=== PATIENT | female | born 1960 | race Caucasian/White ===

== ENCOUNTER 2016-09-25 06:00 | Emergency (ER) | payer SELFPAY ==
--- NOTE | 2016-09-25 08:57 | RAD ---
INDICATION: Fall. Left knee pain COMPARISON: December 04, 2008 TECHNIQUE: AP, lateral, tunnel, and sunrise views were obtained. FINDINGS: There is tricompartmental osteoarthritis of the right knee which appears progressive with moderate condylar and patellofemoral spurring. There is moderate medial and patellofemoral joint space narrowing. There is no acute bony change. There is no joint effusion. IMPRESSION: MODERATE TRICOMPARTMENTAL OSTEOARTHRITIS
[2016-09-25 09:30] VITALS: BP 126/84
--- NOTE | 2016-09-26 10:35 | ED ---
Dung Casas Matthew, scribed for John Piedra MD on 09/25/16 at 0756 . Lower Extremity - HPI Summary HPI Summary: A 56 y/o female presents to the ED by private car c/o of left knee pain. The pain is rated 9/10 in severity and described as sharp. The patient states that she felt directly on her left knee, and that she just hit the corner of her right knee, which has minimal pain. The patient states that she fell on the ice. Associated symptoms include bilateral hand pain from catching herself on the ice. She has a Hx of previous left knee fracture. - History of Current Complaint Chief Complaint: EDExtremityLower Stated Complaint: LT KNEE INJURY Time Seen by Provider: 09/25/16 07:10 Hx Obtained From: Patient Mechanism Of Injury: Fall From A Standing Position Onset of Pain: Immediate Onset/Duration: Still Present Severity Initially: Moderate Severity Currently: Moderate Pain Intensity: 9 Pain Scale Used: 0-10 Numeric Timing: Constant Location: Is Discrete @ - Left knee Character Of Pain: Sharp Associated Signs And Symptoms: Positive: Knee Pain - LT Aggravating Factor(s): Movement - Allergies/Home Medications Allergies/Adverse Reactions: Allergies Allergy/AdvReac Type Severity Reaction Status Date / Time Moxifloxacin [From Avelox] Allergy Severe chest Verified 07/27/16 09:46 tightness, dizzy, nausea Niacin Allergy Rash Verified 07/27/16 09:46 Penicillins [PCN] Allergy Difficulty Verified 07/27/16 09:46 Breathing PMH/Surg Hx/FS Hx/Imm Hx Endocrine/Hematology History: Reports: Hx Diabetes - DIET CONTROLLED Denies: Hx Anticoagulant Therapy Cardiovascular History: Reports: Hx Hypercholesterolemia, Hx Hypertension Denies: Hx Pacemaker/ICD, Other Cardiovascular Problems/Disorders Respiratory History: Reports: Hx Asthma Denies: Hx Chronic Obstructive Pulmonary Disease (COPD) GI History: Reports: Other GI Disorders - CHRONIC DIARRHEA History: Denies: Hx Renal Disease Musculoskeletal History: Reports: Hx Back Problems Sensory History: Reports: Hx Contacts or Glasses Denies: Hx Hearing Aid Opthamlomology History: Reports: Hx Contacts or Glasses Neurological History: Reports: Other Neuro Impairments/Disorders - HX. OF BACK PROBLEMS, PAIN CLINIC PT Denies: Hx Dementia, Hx Seizures Psychiatric History: Reports: Hx Anxiety, Hx Panic Disorder - Cancer History Cancer Type, Location and Year: Squamous cell uterus - Surgical History Surgery Procedure, Year, and Place: TONSILLECTOMY CHILD. TOTAL HYSTERECTOMY 30 YRS AGO. LEFT KNEE SX. BILAT CARPAL TUNNEL SX Hx Anesthesia Reactions: No - Immunization History Date of Influenza Vaccine: 2011 Infectious Disease History: Reports: Hx Clostridium Difficile - 02/2012 - CLEAR 06/2012, Hx Shingles - not currently Denies: Hx Hepatitis, Hx Human Immunodeficiency Virus (HIV), Hx of Known/ Suspected MRSA, Hx Tuberculosis, Traveled Outside the [place] in Last 30 Days - Family History Known Family History: Positive: Cardiac Disease, Diabetes Family History: FHx of [place] - Social History Alcohol Use: None Substance Use Type: Reports: None Substance Use Comment - Amount & Last Used: oxycodone Smoking Status (MU): Light Every Day Tobacco Smoker Type: Cigarettes Amount Used/How Often: 1/4 PPD Have You Smoked in the Last Year: Yes Review of Systems Constitutional: Negative Eyes: Negative ENT: Negative Cardiovascular: Negative Respiratory: Negative Gastrointestinal: Negative Genitourinary: Negative Positive: Myalgia - LT Knee Pain; minimal right knee pain, minimal bilateral hand pains, Decreased ROM - Left Knee Skin: Negative Neurological: Negative Psychological: Normal All Other Systems Reviewed And Are Negative: Yes Physical Exam Triage Information Reviewed: Yes Vital Signs On Initial Exam: Initial Vitals Temp Pulse Resp BP Pulse Ox 98.4 F 78 16 126/84 96 09/25/16 09:27 09/25/16 09:27 09/25/16 09:27 09/25/16 09:27 09/25/16 09:27 Vital Signs Reviewed: Yes Appearance: Positive: Well-Appearing, No Pain Distress Skin: Positive: Warm, Dry Head/Face: Positive: Normal Head/Face Inspection Eyes: Positive: Normal ENT: Positive: Normal ENT inspection Neck: Positive: Supple, Nontender Respiratory/Lung Sounds: Positive: Clear to Auscultation, Breath Sounds Present Cardiovascular: Positive: RRR, Pulses are Symmetrical in both Upper and Lower Extremities Abdomen Description: Positive: Nontender, Soft Bowel Sounds: Positive: Present Musculoskeletal: Positive: Other - The patient's left knee is tender to ROM passive or aggressive. Neurological: Positive: Normal, Sensory/Motor Intact, Alert, Oriented to Person Place, Time Psychiatric: Positive: Affect/Mood Appropriate Diagnostics - Vital Signs Vital Signs Temp Pulse Resp BP Pulse Ox 09/25/16 09:27 98.4 F 78 16 126/84 96 - Laboratory Lab Statement: Any lab studies that have been ordered have been reviewed, and results considered in the medical decision making process. - Radiology LT Knee XR Xray Interpretation: No Acute Changes - IMPRESSION: MODERATE TRICOMPARTMENTAL OSTEOARTHRITIS Radiology Interpretation Completed By: Radiologist Lower Extremity Course/Dx - Course Assessment/Plan: A 56 y/o female presents to the ED by private car c/o of left knee pain. The pain is rated 9/10 in severity and described as sharp. Left Knee XR showed moderate tricompartmental osteoarthritis. The patient will be discharged home to follow-up with Dr. Chow whom shes seen before for a previous left knee fracture. The patient goes to the pain clinic and will follow -up with their office for pain management. - Diagnoses Provider Diagnoses: Left knee injury Discharge - Discharge Plan Condition: Stable Disposition: HOME Patient Education Materials: Knee Sprain (ED), Knee Pain (ED), Ibuprofen (By mouth) Forms: *Work Release Referrals: Getachew Chow MD [Medical Doctor] - 3 Days Additional Instructions: Please follow-up with Dr. Chow. Also, please take ibuprofen as directed on the medication for pain and swelling. The documentation as recorded by the Dung brambila Matthew accurately reflects the service I personally performed and the decisions made by , John Piedra MD.
== END 2016-09-25 09:27 | disposition home or self-care (01) ==
LOC: ED 06:00
DX: S89.92XA Unspecified injury of left lower leg, initial encounter (principal); M25.562 Pain in left knee; M79.642 Pain in left hand; M79.641 Pain in right hand; M19.90 Unspecified osteoarthritis, unspecified site; F17.210 Nicotine dependence, cigarettes, uncomplicated; W19.XXXA Unspecified fall, initial encounter; Y93.9 Activity, unspecified; Y92.9 Unspecified place or not applicable; Z88.0 Allergy status to penicillin
CPT/HCPCS: 99282

== ENCOUNTER 2016-12-21 05:48 | Emergency (ER) | payer BC ==
[2016-12-21] MEDS ORDERED: HYDROmorphone* 1 MG/ML 1 ML SYR IV ONE (06:21)
[2016-12-21] MEDS ORDERED: Ondansetron INJ* 2 MG/ML VIAL IV ONE (06:21)
--- NOTE | 2016-12-21 06:46 | ED ---
I, Oh,Soohzitaun, scribed for Ender Yang MD on 12/21/16 at 0619 . Abdominal Pain/Female - HPI Summary HPI Summary: This 56 y/o female presents to ED for diffuse abd pain and n/v/d since 2 days ago. Pain is described hot and burning. Pt reports 5x diarrhea a day. Imodium makes diarrhea better. Positive chills, tremor, decreased appetite, and lightheaded dizziness. Negative fever, rhinorrhea, or sore throat. No recent abx treatment. PMHx includes C. diff. 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 FHx is positive for gallbladder disease and colitis to mother. Pt is current smoker and nondrinker. - History of Current Complaint Chief Complaint: EDNauseaVomitDiarrh Stated Complaint: VOMITING/DEHYDRATION/ABD PAIN Time Seen by Provider: 12/21/16 06:11 Hx Obtained From: Patient, Medical Records ?: No Pain Intensity: 8 Pain Scale Used: 0-10 Numeric Location: Diffuse Radiates: No Character: Burning Aggravating Factor(s): Nothing Alleviating Factor(s): Nothing Associated Signs and Symptoms: Positive: Nausea, Vomiting, Diarrhea. Negative: Fever Allergies/Adverse Reactions: Allergies Allergy/AdvReac Type Severity Reaction Status Date / Time Moxifloxacin [From Avelox] Allergy Severe chest Verified 12/21/16 06:02 tightness, dizzy, nausea Niacin Allergy Rash Verified 12/21/16 06:02 Penicillins [PCN] Allergy Difficulty Verified 12/21/16 06:02 Breathing Morphine AdvReac Vomiting Verified 12/21/16 06:11 PMH/Surg Hx/FS Hx/Imm Hx Endocrine/Hematology History: Reports: Hx Diabetes - DIET CONTROLLED Denies: Hx Anticoagulant Therapy Cardiovascular History: Reports: Hx Hypercholesterolemia, Hx Hypertension Denies: Hx Pacemaker/ICD, Other Cardiovascular Problems/Disorders Respiratory History: Reports: Hx Asthma Denies: Hx Chronic Obstructive Pulmonary Disease (COPD) GI History: Reports: Other GI Disorders - CHRONIC DIARRHEA History: Denies: Hx Renal Disease Musculoskeletal History: Reports: Hx Back Problems Sensory History: Reports: Hx Contacts or Glasses Denies: Hx Hearing Aid Opthamlomology History: Reports: Hx Contacts or Glasses Neurological History: Reports: Other Neuro Impairments/Disorders - HX. OF BACK PROBLEMS, PAIN CLINIC PT Denies: Hx Dementia, Hx Seizures Psychiatric History: Reports: Hx Anxiety, Hx Panic Disorder - Cancer History Cancer Type, Location and Year: Squamous cell uterus - Surgical History Surgery Procedure, Year, and Place: TONSILLECTOMY CHILD. TOTAL HYSTERECTOMY 30 YRS AGO. LEFT KNEE SX. BILAT CARPAL TUNNEL SX Hx Anesthesia Reactions: No - Immunization History Date of Influenza Vaccine: 2011 Infectious Disease History: No Infectious Disease History: Reports: Hx Clostridium Difficile - 02/2012 - CLEAR 06/2012, Hx Shingles - not currently Denies: Hx Hepatitis, Hx Human Immunodeficiency Virus (HIV), Hx of Known/ Suspected MRSA, Hx Tuberculosis, Traveled Outside the [place] in Last 30 Days - Family History Known Family History: Positive: Cardiac Disease, Diabetes, Other - Gallbladder dz and colitis Family History: FHx of [place] - Social History Alcohol Use: None Hx Substance Use: No Substance Use Type: Reports: None Substance Use Comment - Amount & Last Used: oxycodone Hx Tobacco Use: Yes Smoking Status (MU): Current Every Day Smoker Type: Cigarettes Amount Used/How Often: 1/2 PPD Have You Smoked in the Last Year: Yes Review of Systems Positive: Chills, Other - tremor. Negative: Fever Positive: Abdominal Pain - diffuse, Vomiting, Diarrhea, Nausea, Other - Decreased appetite Negative: dysuria Neurological: Other - Positive lightheaded dizziness All Other Systems Reviewed And Are Negative: Yes Physical Exam - Summary Physical Exam Summary: The patient is well-nourished in no acute distress and in no acute pain. The skin is warm and diaphoretic. HEENT: The head is normocephalic and atraumatic. The pupils are equal and reactive. The conjunctivae are clear and without drainage. Nares are patent and without drainage. Mouth reveals moist mucous membranes and the throat is without erythema and exudate. The external ears are intact. The ear canals are patent and without drainage. The tympanic membranes are intact. Neck is supple with full range of motion and non-tender. There are no carotid bruits. There is no neck vein distension. Respiratory: Chest is non-tender. Lungs are clear to auscultation and breath sounds are symmetrical and equal. Cardiovascular: Hear is regular rate and rhythm. There is no murmur or rub auscultated. There is no peripheral edema and pulses are symmetrical and equal. Abdomen: The abdomen is soft and tender at RUQ, RLQ. There are normal bowel sounds heard in all four quadrants and there is no organomegaly palpated. Musculoskeletal: There is no back pain noted. Extremities are non-tender with full range of motion. There is good capillary refill. There is no peripheral edema or calf tenderness elicited. Neurological: Patient is alert and oriented to person, place and time. The patient has symmetrical motor strength in all four extremities. Cranial nerves are grossly intact. Deep tendon reflexes are symmetrical and equal in all four extremities. Psychiatric: The patient has an appropriate affect and does not exhibit any anxiety or depression. Triage Information Reviewed: Yes Vital Signs On Initial Exam: Initial Vitals Temp Pulse Resp BP Pulse Ox 97 F 68 18 122/85 100 12/21/16 05:51 12/21/16 05:51 12/21/16 05:51 12/21/16 05:51 12/21/16 05:51 Vital Signs Reviewed: Yes Diagnostics - Vital Signs Vital Signs Temp Pulse Resp BP Pulse Ox 12/21/16 06:00 97 F 70 20 137/77 100 12/21/16 05:51 97 F 68 18 122/85 100 - Laboratory Lab Statement: Any lab studies that have been ordered have been reviewed, and results considered in the medical decision making process. - CT Ab/P CT Interpretation Completed By: Radiologist - See EmR Abdominal Pain Fem Course/Dx - Course Course Of Treatment: Pending CT imaging and bloodwork. - Diagnoses Differential Diagnosis: Positive: Diverticulitis, Gall Bladder Disease Provider Diagnoses: Abdominal pain, Dehydration Discharge - Discharge Plan Condition: Stable Disposition: OTHER Discharge Disposition Comment: Pending CT imaging and bloodwork. Referrals: Maria Alejandra Gary NP [Primary Care Provider] - The documentation as recorded by the Joel brambila Soohyun accurately reflects the service I personally performed and the decisions made by me, Ender Yang MD.
[2016-12-21] MEDS: NS 0.9% 1000 ML* 3,000 ML IV ONE ×2 (07:01→08:34)
[2016-12-21 07:11] LABS: Hematocrit 40 % (35-47); Hemoglobin 13.6 g/dl (12.0-16.0); Mean Corpuscular HGB Conc 34 g/dl (31-36); Mean Corpuscular Hemoglobin 28 pg (27-31); Mean Corpuscular Volume 84 fL (80-97); Mean Platelet Volume 10 um3 (7.4-10.4); Red Cell Distribution Width 15 % (10.5-15); White Blood Count 7.6 10^3/ul (3.5-10.8)
[2016-12-21 07:31] LABS: Albumin 3.9 g/dL (3.2-5.2); BUN/Creatinine Ratio 17.6 (8-20); C Reactive Protein 71.03 mg/L (< 5.00); Calcium 9.1 mg/dL (8.6-10.3); EGFR African American 104.4 (>60); EGFR Non-African American 81.2 (>60); Globulin 2.7 g/dL (2-4); Total Bilirubin 0.8 mg/dL (0.2-1.0); Total Protein 6.6 g/dL (6.4-8.9)
--- NOTE | 2016-12-21 08:46 | RAD ---
CLINICAL HISTORY: Vomiting and abdominal pain. Surgical history includes hysterectomy. COMPARISON: None TECHNIQUE: Oral contrast only CT examination of the abdomen and pelvis from the lung bases through the initial tuberosities. FINDINGS: VISUALIZED LUNG BASES: The visualized lung bases are grossly clear. There is no pleural effusion. ABDOMEN AND PELVIS: Evaluation of the solid organs and vasculature is limited without intravenous contrast. The pancreas and adrenal glands are grossly normal in appearance. The liver is mildly enlarged measuring up to 22.9 cm in the cephalocaudal projection. The liver is otherwise homogenous in attenuation and exhibits Hounsfield unit measurement similar to that of the spleen. The spleen is mildly enlarged measuring up to 13.4 cm and greatest axial dimension. The gallbladder is normal. The kidneys are normal in appearance without focal mass, calcification or signs of hydronephrosis. Neural contrast has only progressed as far as the proximal small bowel. The small and large bowel are not distended.The patient's normal appendix is identified in the right lower quadrant measuring 6 mm in diameter with air in the lumen. There is mild pericolonic stranding beginning at the base of the cecum extending to the proximal transverse colon. Though there is no oral contrast in this nondistended portion of the bowel, there does appear to be some degree of wall thickening. From roughly the distal transverse colon distally, the colon is grossly normal in appearance within the limitations of a noncontrast CT examination.. There is no gross retroperitoneal or mesenteric lymphadenopathy. The uterus is surgically absent. The mildly calcified abdominal aorta and iliac arteries are normal in course and diameter. Degenerative changes include multilevel intervertebral disc height loss and anterior marginal osteophyte formation and vacuum disc phenomenon at the lower thoracic spine.There are no sinister bone lesions. IMPRESSION: 1. There is evidence of colitis from the base of the cecum to approximately the mid level transverse colon. An infectious or inflammatory etiology is considered most likely. 2. Mild hepatosplenomegaly of uncertain etiology and clinical significance.
[2016-12-21] MEDS ORDERED: metroNIDAZOLE TAB* 250 MG PO ONE (09:08)
--- NOTE | 2016-12-21 09:24 | ED ---
Iliana Casas Alfonso, scribed for Waqas Mancilla MD on 12/21/16 at 0719 . Progress - Progress Note Progress Note: This patient was signed out by Dr. Yang. - Results/Orders Results/Orders: CT A/P without 1. There is evidence of colitis from the base of the cecum to approximately the mid level transverse colon. An infectious or inflammatory etiology is considered most likely. 2. Mild hepatosplenomegaly of uncertain etiology and clinical significance. Re-Evaluation - Re-Evaluation 0827 Re-Evaluation Time: 08:27 Second Eval Re-Evaluation Time: 09:01 Course/Dx - Course Course Of Treatment: Pending CT imaging and bloodwork. NO CRITICAL CARE TIME. DISCUSSED RESULTS WITH PATIENT. PATIENT TOLERATING PO. WILL RX FLAGYL/ZOFRAN/ PERCOCET. F/U PMD. PATIENT UNDERSTANDS TO RETURN IF WORSE. FLAGYL RX DUE TO PATIENT REPORTING HX C.DIFF AND REPORTING THIS STOOL DOES SMELL LIKE C.DIFF. NO RECENT ABX. DISCHARGE HOME STABLE. - Diagnoses Provider Diagnoses: Abdominal pain, Dehydration, Colitis The documentation as recorded by the Iliana brambila Alfonso accurately reflects the service I personally performed and the decisions made by , Waqas Mancilla MD.
[2016-12-21 10:15] VITALS: BP 124/73
== END 2016-12-21 10:13 | disposition home or self-care (01) ==
LOC: ED 05:48
DX: R10.9 Unspecified abdominal pain (principal); E86.0 Dehydration; K52.9 Noninfective gastroenteritis and colitis, unspecified; R11.2 Nausea with vomiting, unspecified; R19.7 Diarrhea, unspecified; F17.210 Nicotine dependence, cigarettes, uncomplicated
CPT/HCPCS: 36415; 74176; 80053; 83605; 83690; 85025; 86140; 96374; 96375; 99282; A9270-GY; J1170; J2405

== ENCOUNTER 2017-08-20 05:57 | Emergency (ER) | payer BC ==
[2017-08-20] MEDS ORDERED: Acetaminophen TAB* 325 MG PO ONE (06:16)
[2017-08-20] MEDS ORDERED: NS 0.9% 1000 ML* 1,000 ML IV ONE (06:18)
[2017-08-20] MEDS ORDERED: Levofloxacin 750 MG IVPREMIX(* 750 MG/150 ML BAG IVPB ONE (06:20)
[2017-08-20] MEDS ORDERED: Albuterol/Ipratropium NEB.SOL* Albuterol 2.5 MG/Ipratropium 0.5 MG 3 ML INH ONE (06:21)
[2017-08-20] MEDS ORDERED: Albuterol 2.5 MG/3 ML NEB.SOL* (0.083%) INH SCH (07:00)
--- NOTE | 2017-08-20 07:03 | ED ---
Indio Casas Angela, scribed for Davis Taylor MD on 08/20/17 at 0619 . Influenza-Like Illness - HPI Summary HPI Summary: This pt is a 57 y/o female presenting to [facility] c/o fever and cough x1 week. Pt reports her cough is nonproductive and has been SOB. She notes that her maximum temperature was 103 F. Pt additionally states diaphoresis every night for the past week. Pt has not been tested for the flu yet. PMHx: asthma, HTN. - History of Current Complaint Hx Obtained From: Patient Onset/Duration: Gradual Onset, Lasting Days, Still Present Severity: Moderate Associated Signs & Symptoms: Fever, T Max - 103 F, Cough - Allergy/Home Medications Allergies/Adverse Reactions: Allergies Allergy/AdvReac Type Severity Reaction Status Date / Time MS Moxifloxacin [From Avelox] Allergy Severe chest Verified 12/21/16 06:02 tightness, dizzy, nausea MS Niacin [Niacin] Allergy Rash Verified 12/21/16 06:02 MS Penicillins [PCN] Allergy Difficulty Verified 12/21/16 06:02 Breathing MS Morphine [Morphine] AdvReac Vomiting Verified 12/21/16 06:11 PMH/Surg Hx/FS Hx/Imm Hx Endocrine/Hematology History: Reports: Hx Diabetes - DIET CONTROLLED Denies: Hx Anticoagulant Therapy Cardiovascular History: Reports: Hx Hypercholesterolemia, Hx Hypertension Denies: Hx Pacemaker/ICD, Other Cardiovascular Problems/Disorders Respiratory History: Reports: Hx Asthma Denies: Hx Chronic Obstructive Pulmonary Disease (COPD) GI History: Reports: Other GI Disorders - CHRONIC DIARRHEA History: Denies: Hx Renal Disease Musculoskeletal History: Reports: Hx Back Problems Sensory History: Reports: Hx Contacts or Glasses Denies: Hx Hearing Aid Opthamlomology History: Reports: Hx Contacts or Glasses Neurological History: Reports: Other Neuro Impairments/Disorders - HX. OF BACK PROBLEMS, PAIN CLINIC PT Denies: Hx Dementia, Hx Seizures Psychiatric History: Reports: Hx Anxiety, Hx Panic Disorder - Cancer History Cancer Type, Location and Year: Squamous cell uterus - Surgical History Surgery Procedure, Year, and Place: TONSILLECTOMY CHILD. TOTAL HYSTERECTOMY 30 YRS AGO. LEFT KNEE SX. BILAT CARPAL TUNNEL SX Hx Anesthesia Reactions: No - Immunization History Date of Influenza Vaccine: 2011 Infectious Disease History: No Infectious Disease History: Reports: Hx Clostridium Difficile - 02/2012 - CLEAR 06/2012, Hx Shingles - not currently Denies: Hx Hepatitis, Hx Human Immunodeficiency Virus (HIV), Hx of Known/ Suspected MRSA, Hx Tuberculosis, Traveled Outside the [place] in Last 30 Days - Family History Known Family History: Positive: Cardiac Disease, Diabetes, Other - Gallbladder dz and colitis Family History: FHx of [place] - Social History Alcohol Use: None Hx Substance Use: No Substance Use Type: Reports: None Substance Use Comment - Amount & Last Used: oxycodone Hx Tobacco Use: Yes Smoking Status (MU): Current Every Day Smoker Type: Cigarettes Amount Used/How Often: 1/2 PPD Have You Smoked in the Last Year: Yes Review of Systems Positive: Fever, Skin Diaphoresis Eyes: Negative ENT: Negative Positive: Shortness Of Breath, Cough Musculoskeletal: Negative Skin: Negative Neurological: Negative All Other Systems Reviewed And Are Negative: Yes Physical Exam - Summary Physical Exam Summary: VITAL SIGNS: Reviewed. GENERAL: Patient is a well-developed and nourished female who is lying comfortable in the stretcher. Patient is not in any acute respiratory distress. HEAD AND FACE: No signs of trauma. No ecchymosis, hematomas or skull depressions. No sinus tenderness. EYES: PERRLA, EOMI x 2, No injected conjunctiva, no nystagmus. EARS: Hearing grossly intact. Ear canals and tympanic membranes are within normal limits. MOUTH: Oropharynx within normal limits. NECK: Supple, trachea is midline, no adenopathy, no JVD, no carotid bruit, no c- spine tenderness, neck with full ROM. CHEST: Symmetric, no tenderness at palpation LUNGS: Pt has rales and wheezes. CVS: Regular rate and rhythm, S1 and S2 present, no murmurs or gallops appreciated. ABDOMEN: Soft, non-tender. No signs of distention. No rebound no guarding, and no masses palpated. Bowel sounds are normal. EXTREMITIES: FROM in all major joints, no edema, no cyanosis or clubbing. NEURO: Alert and oriented x 3. No acute neurological deficits. Speech is normal and follows commands. SKIN: Dry and warm Triage Information Reviewed: Yes Vital Signs On Initial Exam: Initial Vitals Temp Pulse Resp BP Pulse Ox 97.3 F 74 20 108/74 96 08/20/17 06:00 08/20/17 06:00 08/20/17 06:00 08/20/17 06:00 08/20/17 06:00 Vital Signs Reviewed: Yes Diagnostics - Vital Signs Vital Signs Temp Pulse Resp BP Pulse Ox 08/20/17 06:00 97.3 F 74 20 108/74 96 - Laboratory Lab Statement: Any lab studies that have been ordered have been reviewed, and results considered in the medical decision making process. - Radiology Chest XR Xray Interpretation: No Acute Changes - chest XR is clear. Radiology Interpretation Completed By: ED Physician Flu Symptom Course/Dx - Course Assessment/Plan: This pt is a 57 y/o female presenting to [facility] c/o fever and cough x1 week. Pt reports her cough is nonproductive and has been SOB. She notes that her maximum temperature was 103 F. Pt additionally states diaphoresis every night for the past week. Pt has not been tested for the flu yet. PMHx: asthma, HTN. In the ED course the pt was given Tylenol, Albuterol, duoneb, Levaquin. Blood work was obtained. Chest XR is negative. Pt will be signed out to Dr. Redding, pending disposition, awaiting lab results. - Diagnoses Provider Diagnoses: Influenza-like illness Discharge - Discharge Plan Condition: Stable Disposition: OTHER Discharge Disposition Comment: signed out to Dr. Redding, pending dispo, awaiting lab results. Referrals: Maria Alejandra Gary NP [Primary Care Provider] - The documentation as recorded by the Indio brambila Angela accurately reflects the service I personally performed and the decisions made by me, Davis Taylor MD.
[2017-08-20 07:19] LABS: ABS Basophils 0 10^3/ul (0-0.2); ABS Eosinophils 0 10^3/ul (0-0.6); ABS Lymphocytes 1.9 10^3/ul (1.0-4.8); ABS Monocytes 0.6 10^3/ul (0-0.8); ABS Neutrophils 1.9 10^3/ul (1.5-7.7); ABS Nucleated RBC 0 10^3/ul; Eosinophil % 0.5 % (0-6); Hematocrit 43 % (35-47); Hemoglobin 14.5 g/dl (12.0-16.0); Lymphocyte % 42.8 % (25-47); Mean Corpuscular HGB Conc 34 g/dl (31-36); Mean Corpuscular Hemoglobin 29 pg (27-31); Mean Corpuscular Volume 85 fL (80-97); Mean Platelet Volume 11 um3 (7.4-10.4); Nucleated Red Blood Cells % 0.1; Platelet Count 139 10^3/ul (150-450); Red Blood Count 5.05 10^6/ul (4.0-5.4); Red Cell Distribution Width 15 % (10.5-15); White Blood Count 4.4 10^3/ul (3.5-10.8)
[2017-08-20 07:31] LABS: EGFR Non-African American 62.1 (>60)
--- NOTE | 2017-08-20 08:16 | RAD ---
INDICATION: Cough COMPARISON: None TECHNIQUE: An AP portable view obtained at 0628 hours is submitted. FINDINGS: Bones/Soft Tissues: There are no acute bony findings. Cardiomediastinal: The cardiomediastinal silhouette is normal. Lungs: There are no infiltrates. Pleura: There are no pleural effusions. Other: None IMPRESSION: NORMAL CHEST
[2017-08-20 09:13] VITALS: BP 97/59
--- NOTE | 2017-08-21 18:42 | ED ---
Shay Casas Thomas, scribed for Pete Redding MD on 08/20/17 at 0808 . Progress - Progress Note Progress Note: The patient is a sign out from Dr. Taylor at shift change pending test results. Test results are without any significant abnormalities. CXR is negative for pneumonia. Dr. Taylor recommends for the patient to be discharged with antibiotics and prednisone. At re-examination before the discharge, the lungs are clear to auscultation bilaterally. Therefore, the asthma exacerbation has improved. The patient is discharged home. Condition is stable. Course/Dx - Diagnoses Provider Diagnoses: Bronchitis The documentation as recorded by the Shay brambila Thomas accurately reflects the service I personally performed and the decisions made by Vahid fox Walter, MD.
== END 2017-08-20 09:13 ==
LOC: ED 05:57
DX: J11.1 Influenza due to unidentified influenza virus with other respiratory manifestations (principal); F17.210 Nicotine dependence, cigarettes, uncomplicated; Z88.5 Allergy status to narcotic agent; Z88.0 Allergy status to penicillin; Z88.8 Allergy status to other drugs, medicaments and biological substances
CPT/HCPCS: 36415; 71045; 80053; 83605; 85025; 86140; 87040; 87502; 94640; 96374; 99283; A9270-GY

== ENCOUNTER 2019-08-17 10:39 | Emergency (ER) | payer BC ==
--- OUTSIDE RECORDS SUMMARY | 2019-08-17 10:54 | XMS REPORT | Summary of Care ---
:1960 Author Organization [facility] Address [address] [place] [address] Care Team Providers Name Role Phone Heidi Robert Nuñez Primary Care Provider Henry Shine OD Primary Heating Fixture Tender/Supplemental Nurse Reason for Visit Reason Comments Follow Up A1C paperwork Encounter Details Date Type Department Care Team Description 06/28/2019 Office Visit [facility] Cheryl Ellis, [facility] type 2 Practice ADVISORY APPLICATION DEVELOPER diabetes mellitus [address] [facility] without complication, [place] [address] [place] [address] without long-term [phone] current use of insulin (HCC) (Primary Dx) Allergies Active Allergy Reactions Severity Noted Date Comments Moxifloxacin Anaphylaxis 05/08/2013 Niacin-Simvastatin Rash 04/04/2008 Penicillins Hives 02/09/2008 documented as of this encounter (statuses as of 06/28/2019) Medications Medication Sig Dispensed Refills Start Date End Date Status albuterol (PROVENTIL, 2.5 mg by 0 Active VENTOLIN) (5 MG/ML) 0.5% Inhalation-SVN Inhalation Nebu Soln route FOUR TIMES DAILY. Blood Glucose Monitoring 1 Device by Does 1 Kit 0 01/21/2015 Active Suppl (BLOOD GLUCOSE not apply route. METER) Does not apply Use as directed. KitIndications: Diabetes Dx; 250.00, mellitus (HCC) Test one time day. Lancets Does not apply 1 Device by Does 100 Each 5 01/21/2015 Active MiscIndications: Diabetes not apply route mellitus (HCC) DAILY. DX: 250.02 Test once a day. Glucose Blood In Vitro 1 Strip by In 100 Strip 5 01/21/2015 Active StripIndications: Vitro route Diabetes mellitus (HCC) DAILY. Dx: 250.00, tests one time a day. Type per meter albuterol HFA (VENTOLIN) Take 2 Puffs by 1 Each 3 02/19/2017 Active 108 (90 Base) MCG/ACT inhalation EVERY Inhalation Aero Soln SIX HOURS NEEDED (Take 2 Puffs by inhalation EVERY SIX HOURS NEEDED.). Aspirin 81 MG Oral Tab Take 1 Tab by 30 Tab 0 11/17/2017 Active mouth DAILY. Benzonatate 200 MG Oral Take 1 Cap by 21 Cap 0 01/06/2019 Active Cap mouth THREE TIMES DAILY NEEDED (coughing). Cefdinir (OMNICEF) 300 MG Take by mouth 0 Active Oral Cap TWICE DAILY. meclizine (ANTIVERT) 25 TAKE 1 TABLET BY 30 Tab 11 03/14/2019 Active MG Oral Tab MOUTH AT BEDTIME NEEDED FOR DIZZINESS OR VERTIGO esomeprazole magnesium TAKE 1 CAPSULE 90 Cap 4 04/10/2019 Active (NEXIUM) 40 MG Oral BY MOUTH ONCE CAPSULE DELAYED RELEASE DAILY hydrochlorothiazide TAKE 1 CAPSULE 90 Cap 4 04/17/2019 Active (HCTZ, ORETIC) 12.5 MG BY MOUTH ONCE Oral CapIndications: DAILY Essential hypertension propranolol (INDERAL LA) TAKE TWO 180 Cap 4 06/12/2019 Active 80 MG Oral CAPSULE SR 24 CAPSULES BY HRIndications: Essential MOUTH DAILY hypertension atorvastatin (LIPITOR) 40 TAKE 1 TABLET BY 90 Tab 4 06/12/2019 Active MG Oral TabIndications: MOUTH ONCE DAILY Hypercholesteremia lisinopril (PRINIVIL, TAKE 1 TABLET BY 90 Tab 3 06/12/2019 Active ZESTRIL) 10 MG Oral MOUTH ONCE DAILY TabIndications: Essential hypertension documented as of this encounter (statuses as of 06/28/2019) Active Problems Problem Noted Date C. 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 Referral to skin carver. Controlled type 2 diabetes mellitus without complication, without 02/25/2012 long-term current use of insulin History of tobacco use 06/16/2010 Overview: Quit May 2010 Atypical chest pain 06/16/2010 Overview: Stress echocardiogram negative 05/21 and [facility] inpatient work up negative Essential hypertension Mixed hyperlipidemia Stress incontinence Asthma GERD (gastroesophageal reflux disease) documented as of this encounter (statuses as of 06/28/2019) Resolved Problems Problem Noted Date Resolved Date Dysfunction of eustachian tube 02/08/2014 05/23/2014 Sciatica 09/28/2012 05/23/2014 Headache(784.0) 07/26/2009 01/21/2015 Overview: CT brain [facility] emergency room 07/25/09: negative Hiatal hernia 05/23/2014 documented as of this encounter (statuses as of 06/28/2019) Immunizations Name Administration Dates Next Due Influenza (IM) Preservative Free 03/23/2015, 06/02/2010 Pneumococcal Conjugate Vaccine 06/02/2010 Pneumococcal Conjugate(13 Valent) 03/23/2015 TDAP Vaccine 05/23/2014 documented as of this encounter Social History Tobacco Use Types Packs/Day Years Used Date Current Every Day Smoker Cigarettes 0.5 30 Smokeless Tobacco: Never Used Tobacco Cessation: Ready to Quit: No; Counseling Given: Yes Comments: 7 years currently Alcohol Use Drinks/Week oz/Week Comments No 0 Standard drinks or equivalent 0.0 Sex Assigned at Date Recorded Not on file Job Start Date Occupation Industry Not on file Not on file Not on file Travel History Travel Start Travel End No recent travel history available. documented as of this encounter Last Filed Vital Signs Vital Sign Reading Time Taken Comments Blood Pressure 142/70 06/28/2019 8:08 AM EST Pulse 70 06/28/2019 8:08 AM EST Temperature - - Respiratory Rate - - Oxygen Saturation 98% 06/28/2019 8:08 AM EST Inhaled Oxygen Concentration - - Weight 117.9 kg (260 lb) 06/28/2019 8:08 AM EST Height 165.1 cm (5' 5") 06/28/2019 8:08 AM EST Body Mass Index 43.27 06/28/2019 8:08 AM EST documented in this encounter Progress Notes Cheryl Ellis, KEVIN - 06/28/2019 8:00 AM EST PATIENT: Tonya Stearns : 1960 DATE OF SERVICE: 06/28/2019 CHIEF COMPLAINT: Chief Complaint Patient presents with Follow Up A1C paperwork Subjective HISTORY OF PRESENT ILLNESS: Tonya Stearns is a 59-y.o. female. HPI Pt here for form completion only - needs documentation of recent A1c for Occ. 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 Past Medical History: Diagnosis Date Arthritis Asthma Back pain Cancer (HCC) uterine Cardiac dysrhythmia Chronic daily headache Disc disorder 01-28-10 MRI at [facility], tiny disc protrusion L5-S1,mild patricia. facet arthropathy L4-5&L5- S1 GERD (gastroesophageal reflux disease) Hearing problem Hiatal hernia Hormones and synthetic substitutes causing adverse effect in therapeutic use Hypercholesteremia Hypertension Otitis media PONV (postoperative nausea and vomiting) Postmenopausal Stress incontinence Type II or unspecified type diabetes mellitus without mention of complication, not stated as uncontrolled Family History Problem Relation Age of Onset Hypertension Mother Heart Mother Arthritis Mother Uterine Cancer Mother Heart Father 62 [place] Cancer Paternal Uncle skin Cancer Maternal Grandfather skin Current Outpatient Medications Medication Sig albuterol (PROVENTIL, VENTOLIN) (5 MG/ML) 0.5% Inhalation Nebu Soln 2.5 mg by Inhalation-SVN route FOUR TIMES DAILY. albuterol HFA (VENTOLIN) 108 (90 Base) MCG/ACT Inhalation Aero Soln Take 2 Puffs by inhalation EVERY SIX HOURS NEEDED (Take 2 Puffs by inhalation EVERY SIX HOURS NEEDED.). Aspirin 81 MG Oral Tab Take 1 Tab by mouth DAILY. atorvastatin (LIPITOR) 40 MG Oral Tab TAKE 1 TABLET BY MOUTH ONCE DAILY Benzonatate 200 MG Oral Cap Take 1 Cap by mouth THREE TIMES DAILY NEEDED (coughing). Blood Glucose Monitoring Suppl (BLOOD GLUCOSE METER) Does not apply Kit 1 Device by Does not apply route. Use as directed. Dx; 250.00, Test one time day. Cefdinir (OMNICEF) 300 MG Oral Cap Take by mouth TWICE DAILY. esomeprazole magnesium (NEXIUM) 40 MG Oral CAPSULE DELAYED RELEASE TAKE 1 CAPSULE BY MOUTH ONCE DAILY Glucose Blood In Vitro Strip 1 Strip by In Vitro route DAILY. Dx: 250.00 , tests one time a day. Type per meter hydrochlorothiazide (HCTZ, ORETIC) 12.5 MG Oral Cap TAKE 1 CAPSULE BY MOUTH ONCE DAILY Lancets Does not apply Misc 1 Device by Does not apply route DAILY. DX: 250.02 Test once a day. lisinopril (PRINIVIL, ZESTRIL) 10 MG Oral Tab TAKE 1 TABLET BY MOUTH ONCE DAILY meclizine (ANTIVERT) 25 MG Oral Tab TAKE 1 TABLET BY MOUTH AT BEDTIME NEEDED FOR DIZZINESSOR VERTIGO propranolol (INDERAL LA) 80 MG Oral CAPSULE SR 24 HR TAKE TWO CAPSULES BY MOUTH DAILY No current facility-administered medications for this visit. Allergies Allergen Reactions Avelox [Moxifloxacin] Anaphylaxis Niacin-Simvastatin Rash Penicillins Hives Social History Socioeconomic History Marital status: Spouse name: Not on file Number of children: Not on file Years of education: Not on file Highest education level: Not on file Occupational History Not on file Social Needs Financial resource strain: Not on file Food insecurity Worry: Not on file Inability: Not on file Transportation needs Medical: Not on file Non-medical: Not on file Tobacco Use Smoking status: Current Every Day Smoker Packs/day: 0.50 Years: 30.00 Pack years: 15.00 Types: Cigarettes Smokeless tobacco: Never Used Tobacco comment: 7 years currently Substance and Sexual Activity Alcohol use: No Alcohol/week: 0.0 standard drinks Drug use: No Sexual activity: Yes Partners: Male Lifestyle Physical activity Days per week: Not on file Minutes per session: Not on file Stress: Not on file Relationships Social connections Talks on phone: Not on file Gets together: Not on file Attends mandaen service: Not on file Active member of club or organization: Not on file Attends meetings of clubs or organizations: Not on file Relationship status: Not on file Intimate partner violence Fear of current or ex partner: Not on file Emotionally abused: Not on file Physically abused: Not on file Forced sexual activity: Not on file Other Topics Concern Back Care Not Asked Bike Helmet Not Asked Blood Transfusions Not Asked Caffeine Concern Yes Comment: 1 c coffee, 2 bottles soda and 2 nodoz tabs/day Exercise Not Asked Hobby Hazards Not Asked International Travel Not Asked Service Not Asked Occupational Exposure Not Asked Seat Belt Not Asked Self-Exams Not Asked Sleep Concern Not Asked Special Diet Not Asked Stress Concern Not Asked Weight Concern Yes Social History Narrative Not on file REVIEW OF SYSTEMS: Review of Systems Musculoskeletal: Negative for myalgias. Objective PHYSICAL EXAM: VITALS: BP (!) 142/70 | Pulse 70 | Ht 5' 5" (1.651 m) | Wt 260 lb (117.9 kg ) | SpO2 98% | BMI 43.27 kg/m Body mass index is 43.27 kg/m. Physical Exam Vitals signs and nursing note reviewed. Constitutional: Appearance: She is obese. HENT: Head: Normocephalic and atraumatic. Neurological: Mental Status: She is alert. No formal exam - labs reviewed - A1c done 06/24/19 - 6.5 ASSESSMENT / IMPRESSION: ICD-9-CM ICD-10-CM 1. Controlled type 2 diabetes mellitus without complication, without long-term current use of insulin (HCC) 250.00 E11.9 Plan Form completed Author: KEVIN Simons 06/28/2019 08:49 documented in this encounter Plan of Treatment Health Maintenance Due Date Last Done Comments ZOSTER IMMUNIZATION SERIES 2010 (1 of 2) PNEUMOCOCCAL 0-64 YRS (1 of 05/18/2015 03/23/2015, 06/02/2010 1 - PPSV23) FOOT EXAM 07/14/2017 07/14/2016, 07/14/2016, 05/23/2014 Diabetic Eye Exam 03/24/2018 03/24/2017, 01/09/2017, 01/09/2017, Additional history exists MAMMOGRAM (SCREENING) 09/02/2018 09/02/2017, 08/09/2014, 02/18/2012, Additional history exists INFLUENZA VACCINE (#1) 2019 03/23/2015, 06/02/2010 HEMOGLOBIN A1C 12/24/2019 06/24/2019, 12/24/2018, 07/08/2018, Additional history exists DEPRESSION SCREENING 12/31/2019 12/30/2018, 02/05/2010 LIPID DISORDER SCREENING 06/24/2020 06/24/2019, 06/12/2019, 12/24/2018, Additional history exists Colonoscopy 02/25/2022 02/25/2017, 02/25/2017, 03/01/2012 DTaP/Tdap/Td Vaccines (2 - 05/23/2024 05/23/2014 Tdap) HEPATITIS A IMMUNIZATION Aged Out No longer eligible SERIES based on patient's age to complete this topic HPV IMMUNIZATION SERIES Aged Out No longer eligible based on patient's age to complete this topic MENINGOCOCCAL VACCINE IMM Aged Out No longer eligible based on patient's age to complete this topic documented as of this encounter Goals Goal Patient Goal Associated Recent Patient-Stated? Author Type Problems Progress Blood Pressure Blood Pressure 142/70 No [place], < 140/90 (06/28/2019 Robert Nuñez, 8:08 AM EST) Note: Hypertension Care Plan Based on the patient's clinical history and according to JNC 8 guidelines target blood pressure goal is less than 140/90. Based on the patient's last blood pressure of BP: 128/70 mmHg the patient is at at goal. As your provider, it is important that I advise you regarding: your current medications and help you with any challenges you may face taking your medications as directed (ex. instructions, cost, side effects, and interactions). lifestyle changes: exercise, weight reduction, diet and dietary sodium reduction your clinical goals and how you can achieve success: weight reduction, exercise plan and diet improvements medication management: N/A diet only patient education/self-management tools provided: Current self-management tools adequate To successfully manage my Hypertension I will: monitor my blood pressure daily, understanding that my goal is less than 140/ 90 per my healthcare provider's recommendation. I will schedule an appointment with my provider if consistent abnormal readings greater than 160/100. take medications every day as prescribed by my healthcare provider and if unable to take them I will discuss with my provider. monitor for symptoms of chest pain, chest tightness/pressure, irregular heartbeat, persistent dizziness, radiating arm pain, and neck or jaw pain. If any of these symptoms are noticed I will seek medical attention immediately by calling 911 exercise/walk 30 minutes 6 day(s) per week. If I experience chest pain, chest tightness, or shortness of breath, I will seek medical attention immediately. follow a diet rich in fruits, vegetables, and low-fat dairy products with reduced content of saturated & total fat. I will reduce my sodium intake daily. An example is the DASH diet. To obtain more information please refer to the DASH Eating Plan listed in Educational Resources. record my blood pressure results. [facility] is safe and secure way for you to do this in your medical record online. try to obtain an ideal body weight. My recent weight was Weight: 268 lb ( 121.564 kg). My weight loss goal for my next office visit is 250 lb . limit alcohol consumption. For men two drinks per day and women one drink per day. if currently smoking, will discuss how to quit smoking with my healthcare provider and work towards quitting. Educational Resources: National Heart, Lung, & Blood [place] http://nhlbi.nih.gov/hbp/index.html The DASH Diet Eating Plan http://www.nhlbi.nih.gov/health/health-topics/ topics/dash/ Academy of Nutrition & DIetetics http://eatright.org National Smoking Cessation Site http://smokefree.gov Blood Pressure < Blood Pressure 142/70 (06/28/2019 No Maria Alejandra Gary FNP 140/90 8:08 AM EST) Note: This is an individualized treatment (blood pressure) goal for Tonya Stearns: Displayed above (on the left) is your goal for blood pressure control. Your most recent blood pressure is also shown above, on the right. You should try to achieve blood pressures that are lower than your goal listed above (on the left). Glycohemoglobin A1c < 7.0 Diabetes 6.5 (06/24/2019 11:14 No Maria Alejandra Gary FNP AM EST) Note: This is an individualized treatment (diabetes control, HgbA1C) goal for Tonya Stearns: Displayed above is your progress towards your HgbA1C goal. Your goal is shown above (on the left); your most recent HgbA1C is shown on the right. Note that lower numbers are better. Weight loss vs. 18 mo Lifestyle 3 (06/28/2019 8:08 AM No Maria Alejandra Gary FNP max (lbs) >= 10 EST) Note: This is an individualized lifestyle goal for Tonya Stearns: Your body mass index (BMI) is more than 30. You should lose weight. A reasonable starting goal is to lose 10 pounds. Displayed above is how many pounds you have lost thus far towards your 10 pound weight loss goal. Keep immunizations current Lifestyle No Maria Alejandra Gary FNP Note: This is an individualized lifestyle goal for Tonya Stearns: Please be sure to keep up-to-date on recommended immunizations. For example, this would include a yearly influenza vaccine. Immunization status can be seen by looking at the Health Maintenance sections of your [facility], Plan of Care, and any After Visit Summaries. Take all prescribed medications as Self-management No Maria Alejandra Gary FNP directed Note: This is an individualized self-management goal for Tonya Stearns: Please take all prescribed medications as directed. 1. Do not skip doses. If you cannot afford your medications, talk with your doctor. 2. Use a pill reminder system such as a pill box if needed. Your pharmacist can help you with this. 3. Contact your Pharmacy 5 days before your medication runs out. If you cannot take your medications for any reasons, talk with your doctor. 4. Please bring all of your medication bottles and inhalers (or a list of all your medications/inhalers) with you to every visit. Potential barriers to meeting all of your care plan goals will continue to be addressed on an ongoing basis. documented as of this encounter Results Not on filedocumented in this encounter Visit Diagnoses Diagnosis Controlled type 2 diabetes mellitus without complication, without long-term current use of insulin (HCC) documented in this encounter Insurance Payer Benefit Plan / Subscriber ID Effective Dates Phone Address Type Group [employer]BS sa[employer] xxxxxxxxxxxx 2014-Present [employer] Name Account Type Relation to Date of Phone Billing Patient Address Tonya Stearns Personal/Family 1960 [address] (Home) [facility] [phone] [facility] (Work) [place] [address] documented as of this encounter Advance Directives Code Status Date Activated Date Inactivated Comments Full Code 02/27/2014 9:41 AM 02/27/2014 7:42 PM Full Code
[2019-08-17] MEDS ORDERED: Acetaminophen TAB* 325 MG PO ONE (12:39)
--- NOTE | 2019-08-17 13:08 | ED ---
Head Injury - HPI Summary HPI Summary: Patient is a 59 y/o F presenting to [facility] with complaints of POOLE, left-eye blurred vision, nausea and some dizziness after head injury. She states that around 0650 08/17/19, she had slipped, fell, and struck the left posterior of her head on the mirror of a school bus. She notes that she managed to catch herself before hitting the ground. POOLE has been constant since onset but notes that it is lessened in the dark. Currently, POOLE is rated 5/10. She states that Sx are significantly lessened and she feels better. No episodes of emesis and no difficulty ambulating noted. She does state that she has neck stiffness. Hx of migraines reported, the patient states that this episode of Sx was more severe than her migraines. PMHx of HTN and GERD noted, patient states that these conditions are well controlled with medications. Patient is on 325 ASA daily, no blood thinners otherwise. Fever, chills, erythema of eyes, sore throat, CP, SOB, cough, abdominal pain, dysuria, hematuria, myalgia, edema, rash are not reported. Home medications and allergies are reviewed. - History Of Current Complaint Chief Complaint: EDHeadInjury Stated Complaint: HEAD INJURY PER PT Time Seen by Provider: 08/17/19 10:52 Hx Obtained From: Patient Mechanism Of Injury: Fall From A Standing Position Onset/Duration: Started Hours Ago, Still Present Onset of Pain: Hours, Prior to Arrival Severity Currently: Moderate Severity Initially: Severe Pain Intensity: 7 Pain Scale Used: 0-10 Numeric Location of Head Injury: Occipital Location: Discrete At: - left posterior Alleviating Factor(s): Other: - darkness Associated Signs And Symptoms: Nausea, Headache, Visual Changes, Other: - negative - Fever, chills, erythema of eyes, sore throat, CP, SOB, cough, abdominal pain, dysuria, hematuria, myalgia, edema, rash, difficulty ambulating - Allergies/Home Medications Allergies/Adverse Reactions: Allergies Allergy/AdvReac Type Severity Reaction Status Date / Time moxifloxacin Allergy Severe Dizziness Verified 08/17/19 10:44 morphine Allergy Vomiting Verified 08/17/19 10:44 niacin Allergy Rash Verified 08/17/19 10:44 Penicillins Allergy Difficulty Verified 08/17/19 10:44 Breathing Home Medications: Home Medications Albuterol 0.5% CONC NEB.MICHAEL* [Albuterol 0.5ol*] 2.5 mg INH QID 08/17/19 [ History Confirmed 08/17/19] Albuterol HFA INHALER* [Ventolin HFA Inhaler*] 2 puff INH Q6H PRN 08/17/19 [ History Confirmed 08/17/19] Aspirin EC TAB* [Ecotrin EC Low Dose 81 MG*] 81 mg PO DAILY 08/17/19 [History Confirmed 08/17/19] Benzonatate CAP* [Tessalon 100 MG CAP*] 200 mg PO TID PRN 08/17/19 [History Confirmed 08/17/19] Cefdinir cap* [Cefdinir 300 MG cap (NF)] 300 mg PO BID 08/17/19 [History Confirmed 08/17/19] Hydrochlorothiazide TAB* [Hydrodiuril TAB*] 12.5 mg PO DAILY 08/17/19 [History Confirmed 08/17/19] Lisinopril TAB* [Prinivil TAB*] 10 mg PO DAILY 08/17/19 [History Confirmed 08/17] Meclizine TAB* [Antivert 12.5 TAB*] 25 mg PO BEDTIME PRN 08/17/19 [History Confirmed 08/17/19] Propranolol TAB* [Inderal TAB*] 160 mg PO DAILY 08/17/19 [History Confirmed 12/29] PMH/Surg Hx/FS Hx/Imm Hx Endocrine/Hematology History: Reports: Hx Diabetes - DIET CONTROLLED Denies: Hx Anticoagulant Therapy Cardiovascular History: Reports: Hx Hypercholesterolemia, Hx Hypertension Denies: Hx Pacemaker/ICD, Other Cardiovascular Problems/Disorders Respiratory History: Reports: Hx Asthma Denies: Hx Chronic Obstructive Pulmonary Disease (COPD) GI History: Reports: Other GI Disorders - CHRONIC DIARRHEA History: Denies: Hx Renal Disease Musculoskeletal History: Reports: Hx Back Problems Sensory History: Reports: Hx Contacts or Glasses Denies: Hx Hearing Aid Opthamlomology History: Reports: Hx Contacts or Glasses Neurological History: Reports: Other Neuro Impairments/Disorders - HX. OF BACK PROBLEMS, PAIN CLINIC PT Denies: Hx Dementia, Hx Seizures Psychiatric History: Reports: Hx Anxiety, Hx Panic Disorder - Cancer History Cancer Type, Location and Year: Squamous cell uterus - Surgical History Surgery Procedure, Year, and Place: TONSILLECTOMY CHILD. TOTAL HYSTERECTOMY 30 YRS AGO. LEFT KNEE SX. BILAT CARPAL TUNNEL SX Hx Anesthesia Reactions: No - Immunization History Date of Influenza Vaccine: 2011 Immunizations Up to Date: Yes Infectious Disease History: No Infectious Disease History: Reports: Hx Clostridium Difficile - 02/2012 - CLEAR 06/2012, Hx Shingles - not currently Denies: Hx Hepatitis, Hx Human Immunodeficiency Virus (HIV), Hx of Known/ Suspected MRSA, Hx Tuberculosis, Traveled Outside the [place] in Last 30 Days - Family History Known Family History: Positive: Cardiac Disease, Diabetes, Other - Gallbladder dz and colitis Family History: FHx of CA - Social History Alcohol Use: None Hx Substance Use: No Substance Use Type: Reports: None Substance Use Comment - Amount & Last Used: oxycodone Hx Tobacco Use: Yes Smoking Status (MU): Heavy Every Day Tobacco Smoker Type: Cigarettes Amount Used/How Often: 1/2 PPD Have You Smoked in the Last Year: Yes Review of Systems Negative: Fever, Chills Positive: Blurred Vision - left eye . Negative: Drainage Negative: Sore Throat Negative: Chest Pain Negative: Shortness Of Breath, Cough Positive: Nausea. Negative: Abdominal Pain, Vomiting Negative: dysuria, hematuria Musculoskeletal: Other - positive - neck stiffness Negative: Myalgia, Edema Negative: Rash Neurological: Other - positive - head injury, dizziness; negative - difficulty ambulating Positive: Headache All Other Systems Reviewed And Are Negative: Yes Physical Exam - Summary Physical Exam Summary: Constitutional: Well-developed, Well-nourished, Alert. (-) Distressed Skin: Warm, Dry HENT: Normocephalic; Atraumatic Eyes: Conjunctiva normal Neck: Musculoskeletal ROM normal neck. (-) JVD, (-) Stridor, (-) Tracheal deviation Cardio: Rhythm regular, rate normal, Heart sounds normal; Intact distal pulses; The pedal pulses are 2+ and symmetric. Radial pulses are 2+ and symmetric. (-) Murmur Pulmonary/Chest wall: Effort normal. (-) Respiratory distress, (-) Wheezes, (-) Rales Abd: Soft. (-) Tenderness, (-) Distension, (-) Guarding, (-) Rebound Musculoskeletal: (-) Edema Lymph: (-) Cervical adenopathy Neuro: Alert, Oriented x3, Strength normal, Cranial nerves II-XII are grossly intact. (-) Dysmetria, (-) Nystagmus, (-) Ataxia by finger to nose testing, (-) Sensory deficit. Psych: Mood and affect Normal Triage Information Reviewed: Yes Vital Signs On Initial Exam: Initial Vitals Temp Pulse Resp BP Pulse Ox 97.1 F 68 18 154/104 100 08/17/19 10:40 08/17/19 10:40 08/17/19 10:40 08/17/19 10:40 08/17/19 10:40 Vital Signs Reviewed: Yes Procedures - Sedation Patient Received Moderate/Deep Sedation with Procedure: No Diagnostics - Vital Signs Vital Signs Temp Pulse Resp BP Pulse Ox 08/17/19 10:40 97.1 F 68 18 154/104 100 - Laboratory Lab Statement: Any lab studies that have been ordered have been reviewed, and results considered in the medical decision making process. - CT CERVICAL SPINE CT CT Interpretation Completed By: Radiologist Summary of CT Findings: CERVICAL SPINE CT IMPRESSION: OSTEOPENIA. DEGENERATIVE DISC DISEASE AND OSTEOARTHRITIS. NO ACUTE OSSEOUS INJURY TO THE CERVICAL SPINE. THIS REPORT WAS REVIEWED BY ED PHYSICIAN BRAIN CT CT Interpretation Completed By: Radiologist Summary of CT Findings: BRAIN CT IMPRESSION: #. No CT evidence for traumatic brain injury or acute intracranial process. THIS REPORT WAS REVIEWED BY ED PHYSICIAN. Re-Evaluation - Re-Evaluation First Eval Re-Evaluation Time: 13:46 Head Injury Course/Dx Course Of Treatment: Patient is a 59 y/o F presenting to [facility] with complaints of POOLE, left-eye blurred vision, nausea and some dizziness after head injury. She states that around 0650 08/17/19, she had slipped, fell, and struck the left posterior of her head on the mirror of a school bus. She notes that she managed to catch herself before hitting the ground. POOLE has been constant since onset but notes that it is lessened in the dark. Currently, POOLE is rated 5/10. She states that Sx are significantly lessened and she feels better. No episodes of emesis and no difficulty ambulating noted. She does state that she has neck stiffness. Hx of migraines reported, the patient states that this episode of Sx was more severe than her migraines. PMHx of HTN and GERD noted, patient states that these conditions are well controlled with medications. Patient is on 325 ASA daily, no blood thinners otherwise. Neuro: Alert, Oriented x3, Strength normal, Cranial nerves II-XII are grossly intact. (-) Dysmetria, (-) Nystagmus, (-) Ataxia by finger to nose testing, (-) Sensory deficit. CERVICAL SPINE CT IMPRESSION: OSTEOPENIA. DEGENERATIVE DISC DISEASE AND OSTEOARTHRITIS. NO ACUTE OSSEOUS INJURY TO THE CERVICAL SPINE. BRAIN CT IMPRESSION: #. No CT evidence for traumatic brain injury or acute intracranial process. Patient was discharged to home and will follow up with PCP within three days. - Diagnoses Provider Diagnoses: Mild concussion, Cervical strain Discharge ED - Sign-Out/Discharge Documenting (check all that apply): Patient Departure - discharge - Discharge Plan Condition: Stable Disposition: HOME Patient Education Materials: Cervical Strain (ED), Concussion (ED) Forms: *Work Release Referrals: Maria Alejandra Gary NP [Primary Care Provider] - 3 Days Additional Instructions: PLEASE FOLLOW UP WITH YOUR PRIMARY CARE PHYSICIAN WITHIN THREE DAYS. PLEASE RETURN TO ED FOR ANY NEW OR CONCERNING SYMPTOMS. - Attestation Statements Document Initiated by Scribe: Yes
[2019-08-17 13:57] VITALS: BP 0/0
== END 2019-08-17 13:57 | disposition home or self-care (01) ==
LOC: ED 10:39
DX: S06.0X0A Concussion without loss of consciousness, initial encounter (principal); S16.1XXA Strain of muscle, fascia and tendon at neck level, initial encounter; R51 Headache; W01.198A Fall on same level from slipping, tripping and stumbling with subsequent striking against other object, initial encounter; Y92.9 Unspecified place or not applicable; F17.210 Nicotine dependence, cigarettes, uncomplicated; H53.8 Other visual disturbances; Z85.42 Personal history of malignant neoplasm of other parts of uterus
CPT/HCPCS: 70450; 72125; 99282